=== PATIENT | female | born 1995 | race Two or more races ===

== ENCOUNTER 2025-07-09 11:43 | Emergency (ER) | payer OTHER ==
[~2025-07-09] VITALS: Ht 165.1 cm; Wt 88.5 kg
[2025-07-09 12:43] VITALS: BP 124/89; O2SAT 100
[2025-07-09] MEDS ORDERED: METHYLPREDNISOLONE SOD SUCC 125 MG VIAL IM STA (13:08)
[2025-07-09] MEDS ORDERED: DIPHENHYDRAMINE HCL 50 MG/ML VIAL 1ML IM STA (13:08)
[2025-07-09] MEDS ORDERED: DIPHENHYDRAMINE HCL 50 MG/ML VIAL 1ML ONE (13:24)
[2025-07-09] MEDS ORDERED: METHYLPREDNISOLONE SOD SUCC 125 MG VIAL ONE (13:24)
[2025-07-09] MEDS ORDERED: WATER FOR INJ.,BACTERIOSTATIC 30 ML VIAL IJ ONE (13:25)
[2025-07-09 13:47] LABS: BASO % 0.5 % (0.1-1.2); EOS # 0.13 (0.04-0.54); EOS % 1.7 % (0.7-7.0); LYMPH # 1.90 (1.18-3.74); LYMPH % 25.1 % (19.3-53.1); MEAN PLATELET VOLUME 9.90 fl (9.4-12.4); MONO # 0.53 (0.24-0.82); MONO % 7.0 % (4.7-12.5); NEUT # 4.97 (1.56-6.13); NEUT % 65.6 % (34.0-71.1); RED CELL DISTRIBUTION WIDTH 12.0 % (11.6-14.4)
[2025-07-09 14:48] LABS: ALT/SGPT 19.0 U/L (12-78); AST/SGOT 9.0 U/L (15-37); BILIRUBIN TOTAL 0.3 mg/dL (0.3-1.2); BUN CREA RATIO 12.0 (7.0-25.0); CREATININE SERUM 0.75 mg/dL (0.55-1.02); GFR 92.01; GLOBULINA 4.0 G/DL (2.4-3.5); GLUCOSE FASTING 95.0 mg/dL (65-100); OSMOLALITY SERUM 278.0 MOSM/KG (275-295)
[2025-07-09 15:04] LABS: URINE APPEARANCE Clear; URINE BILIRRUBIN Negative (NEGATIVE); URINE BLOOD Negative; URINE COLOR Yellow; URINE GLUCOSE Negative (NEGATIVE); URINE KETONE Trace (NEGATIVE); URINE LEUKOCYTE Small; URINE NITRATE Negative; URINE PROTEIN Negative (NEGATIVE); URINE UROBILINOGEN 0.2 E.U./dl
[2025-07-09 15:08] LABS: URINE BACTERIA 1507.5 uL (0.0-1933); URINE EPITHELIAL CELLS 42.6 uL (0.0-38.8); URINE RBC 5.9 uL (0.0-20.8); URINE WBC 127.8 uL (0.0-23.2)
[2025-07-09 15:25] LABS: URINE CAST 0.70 uL (0.0-1.40)
[2025-07-09 15:32] LABS: COVID-19 AG NEGATIVE (NEGATIVE)
== END 2025-07-09 18:03 | disposition home or self-care (01) ==
LOC: ER 11:44
PROVIDERS: General Practice
DX: L50.8 Other urticaria (principal); Z88.1 Allergy status to other antibiotic agents; Z88.0 Allergy status to penicillin; Z91.013 Allergy to seafood; Z91.018 Allergy to other foods; Z20.822 Contact with and (suspected) exposure to COVID-19